=== PATIENT | female | born 1955 | race Caucasian/White ===

== ENCOUNTER → 2016-09-08 | Outpatient (CLI) | payer MEDICARE, BC ==
[~2016-09-08] MED LIST: ALLERGIE SHOTS SQ; AMLODIPINE BESYL5 MG PO; ATORVASTATIN CA10 MG PO; AUGMENTIN PO; BISOPROLOL-HCTZ1 TAB PO; CARAFATE; CELEXA10 MG PO; DETROL LA PO; FLAX SEED OIL1000 MG; FLONASE ALLERG9.9 ML; FLONASE16 GM; GLIMEPIRIDE2 MG PO; GLUCOSAMINE CHONDROI; INDOMETHACIN75 MG; LIPITOR; LIPITOR PO; MULTI-VITAMIN1 TAB; OMEPRAZOLE40 M1 PO; SINGULAIR; SINGULAIR PO; VITAMIN D50000 UNIT PO; ZANTAC150 MG; ZELNORM; ZYRTEC PO; [UNRECOGNIZED DRUG - OTHER]
[2016-09-08 11:46] LABS: HEMATOCRIT 38.7 % (35.0-45.0); HEMOGLOBIN 12.9 gm/dL (12.0-16.0); MEAN CELL VOLUME 90.6 FL (83-96); MEAN CORPUSCULAR HEMOGLOBIN 30.3 PG (28-34); MEAN CORPUSCULAR HGB CONC 33.4 g/dL (30-36); MEAN PLATELET VOLUME 8.6 FL (6.5-11.5); RED BLOOD COUNT 4.27 X10e (3.90-5.30); RED CELL DISTRIBUTION WIDTH 14.2 % (11.0-15.5); WHITE BLOOD COUNT 6.8 X10e3 (4.0-10.5)
[2016-09-08 11:56] LABS: URINE APPEARANCE CLEAR; URINE BILIRUBIN NEG (NEG); URINE BLOOD NEG (NEG); URINE COLOR YELLOW; URINE GLUCOSE NEG (NEG); URINE KETONE NEG (NEG); URINE LEUKOCYTE ESTERASE TRACE (NEG); URINE NITRATE NEG (NEG); URINE PROTEIN NEG (NEG); URINE SPECIFIC GRAVITY 1.004 (1.003-1.035); URINE UROBILINOGEN 0.2 MG/DL (NEG)
[2016-09-08 11:59] LABS: URBCS1 AUWI 0-2 /[HPF] (0-2); URINE BACTERIA AUWI NEG (NEGATIVE); URINE SQUAMOUS EPITHELIAL CELL NONE SEEN /[HPF]; UWBCS1 AUWI 0-2 (0-5)
[2016-09-08 12:01] LABS: URINE SOURCE CLEAN CATCH
[2016-09-08 12:23] LABS: ALBUMIN SERUM 4.2 g/dL (3.5-5.0); BILIRUBIN,TOTAL 0.7 mg/dL (0.2-2.0); BUN/CREATININE RATIO 16.25; CREATININE SERUM 0.8 mg/dL (0.6-1.4); GLOM FILT RATE Estimated 79.6 mL/min (>60); POTASSIUM 3.9 mmol/L (3.5-5.1); PROTEIN TOTAL SERUM 6.7 g/dL (6.0-8.3)
== END | disposition home or self-care (01) ==
LOC: CLAB 10:47
PROVIDERS: Nurse Practitioner
DX: R10.32 Left lower quadrant pain (principal); R94.5 Abnormal results of liver function studies
CPT/HCPCS: 36415; 80053; 81003; 85027; 87086

== ENCOUNTER → 2016-09-19 | Outpatient (CLI) | payer MEDICARE, BC ==
--- NOTE | ~2016-09-19 | CT2 ---
[facility] A Service of [facility] & [facility] RADIOLOGY TEXT RESULTS PATIENT: OBDULIO RANDHAWA [facility] UNIT #: [id number] AGE: [address]: ROBE OTOOLE APRN SEX: F ORDER DR: [id number] [facility] [address] [place], [place] [address] [id number] O MR#: [id number] #: [id number] NAME: OBDULIO RANDHAWA : 1955 SEX: F STUDY DATE/TIME: 09/19/2016 14:23 UNIT: [facility] ROOM: STUDY DESCRIPTION: CT Abd and Pelv W Cont Attending Physician: Robe Otoole Aprn Referring Physician: Robe Otoole Aprn Ordering Physician: Robe Otoole Aprn Primary Care Physician: Dylon Herrera M.D. MEDICAL IMAGING REPORT This report is preliminary unless electronic signature is present EXAM CT abdomen and pelvis. HISTORY Left lower quadrant abdominal pain. Right lower quadrant abdominal pain. Intermittent pain for 2-[address] of the abdomen and pelvis with p.o. and IV contrast (100 mL Isovue-370 IV contrast). Coronal and sagittal reconstructions were obtained. This CT exam was performed with one or more of the following radiation dose reduction techniques: automatic exposure control, adjustment of mA and/or kV according to patient size, and iterative reconstruction. COMPARISON CT abdomen and pelvis, 08/13/2008. FINDINGS ABDOMEN: Diffusely decreased attenuation throughout the hepatic parenchyma is indicative of hepatic steatosis. There is mild hepatomegaly with the liver measuring 17 cm in length. The gallbladder is surgically absent. No intrahepatic or extrahepatic biliary dilatation. Pancreas, spleen, adrenal glands, and kidneys are within normal limits. The bowel is not dilated. The appendix is normal. There is extensive colonic diverticulosis. No diverticulitis. PELVIS: The bladder is unremarkable. The uterus and ovaries are within normal limits. There is a small indirect left inguinal hernia and probably a small right indirect inguinal hernia. The bladder is unremarkable. No acute osseous abnormalities. There is grade 1 anterolisthesis of L5 on STS. [facility] A Service of [facility] & [facility] RADIOLOGY TEXT RESULTS PATIENT: OBDULIO RANDHAWA LOCATION: [facility] : 55 UNIT #: [id number] AGE: [address]: ROBE OTOOLE DIAL MOUNTER SEX: F ORDER DR: S1, secondary to L5 pars defects. IMPRESSION 1. No acute findings in the abdomen or pelvis. 2. Extensive colonic diverticulosis. 3. Hepatic steatosis and mild splenomegaly. 4. Small left indirect inguinal hernia and probable small right indirect inguinal hernia. Dictated by... Mariusz Hudson M.D. THIS IS AN ELECTRONICALLY VERIFIED REPORT Mariusz Hudson M.D. at 09/19/2016 7:47 PM Jenny TD: 09/19/2016 19:13 JOB #: [id number] MEDICAL IMAGING REPORT Page 1 of 1 COPY
[2016-09-19 22:51] LABS: POC - CREATININE 0.91 mg/dL (0.44-1.03); POC - GFR >60.0 mL/min (>60)
== END | disposition home or self-care (01) ==
LOC: CCAT 12:53
PROVIDERS: Nurse Practitioner
DX: R10.32 Left lower quadrant pain (principal); K57.30 Diverticulosis of large intestine without perforation or abscess without bleeding; K76.0 Fatty (change of) liver, not elsewhere classified; R16.1 Splenomegaly, not elsewhere classified; K40.90 Unilateral inguinal hernia, without obstruction or gangrene, not specified as recurrent
CPT/HCPCS: 74177; 82565; Q9967

== ENCOUNTER → 2017-02-23 | Outpatient (CLI) | payer MEDICARE, BC ==
--- NOTE | ~2017-02-23 | CR63 ---
[facility] A Service of [facility] & [facility] RADIOLOGY TEXT RESULTS PATIENT: OBDULIO RANDHAWA LOCATION: [facility] : 55 UNIT #: [id number] AGE: [address]: ROBE OTOOLE APRN SEX: F ORDER DR: [id number] [facility] [address] [place], [place] [address] [id number] O MR#: [id number] Acc #: [id number] NAME: OBDULIO RANDHAWA : 1955 SEX: F STUDY DATE/TIME: 02/23/2017 10:44 UNIT: [facility] ROOM: STUDY DESCRIPTION: CR Chest 2 View Attending Physician: Robe Otoole Aprn Referring Physician: Robe Otoole Aprn Ordering Physician: Robe Otoole Aprn Primary Care Physician: Dylon Herrera M.D. MEDICAL IMAGING REPORT This report is preliminary unless electronic signature is present EXAM Chest, 02/23/2017, [facility]. HISTORY 61-year-old woman with history of chest pain. Byrne's esophagus. Patient indicates cough, congestion, high blood pressure, previous esophageal dilatation. COMPARISON Chest, 05/24/2011. FINDINGS PA and lateral chest views show normal cardiac size and configuration. Hilar structures and mediastinal contours are preserved. Lungs are expanded and clear. Costophrenic angles appear normal. Bony thorax is negative. Intraosseous anchors noted right proximal humerus. IMPRESSION Negative and stable chest. No acute finding. Dictated by... David Pryor M.D. THIS IS AN ELECTRONICALLY VERIFIED REPORT David Pryor M.D. at 02/25/2017 12:02 PM CHENCHO/pam TD: 02/23/2017 15:57 JOB #: [id number] MEDICAL IMAGING REPORT Page 1 of 1 COPY
== END | disposition home or self-care (01) ==
LOC: CRAD 10:35
DX: K22.70 Barrett's esophagus without dysplasia (principal); R07.89 Other chest pain
CPT/HCPCS: 71020